=== PATIENT | male | born 1985 | race Caucasian/White ===

== ENCOUNTER 2021-09-19 17:59 | Emergency (ER) | payer OTHER ==
[2021-09-19] MEDS ORDERED: Diphtheria,Pertussis(Acell),Tetanus Vaccine 0.5 ML Syringe IM ONE (18:34)
[2021-09-19] MEDS ORDERED: Lidocaine 1% PF 2 ML SDV INJECT ONE (18:34)
[2021-09-19] MEDS ORDERED: Lidocaine 1% 2 ML ONE (18:56)
== END 2021-09-19 19:37 | disposition home or self-care (01) ==
LOC: MW.ED 17:59
DX: S91.311A Laceration without foreign body, right foot, initial encounter (principal); Z23 Encounter for immunization; W26.8XXA Contact with other sharp object(s), not elsewhere classified, initial encounter
CPT/HCPCS: 12002; 90471; 90715; 99282-25; 99283